=== PATIENT | male | born 1950 | race Caucasian/White ===

== ENCOUNTER 2020-02-02 00:51 | Outpatient (CLI) | payer MEDICARE, OTHER, SELFPAY ==
--- NOTE | 2020-02-02 10:30 | DI.NM_ITS ---
APPROVED REPORT Exam: Pharmacologic Patient Location: Out-Patient Room/Bed: Stress Nurse: Teresa Ledezma RN BMI: 35.29 Baseline Rhythm: Atrial Fibrillation, RBBB Indications: Chest Pain, Atrial Fibrillation, CAD Medical History Medical History: Atrial Fibrillation, CAD non obstructive, Diabetes, HTN, Obstructive sleep apnea, RB BB, Heart failure, CKD, CHF Cardiac Medications: Aspirin, Amlodipine, Atorvastatin/ Lipitor, Enalapril, Fish Oil , Metoprolol suc cinate/ Toprol XL, Torsemide/Demadex Allergies: Oxycodone, penicillin, requip, vicodin. Cardiac Risk Factors: HTN, Hyperlipidemia, DM, CVD, FHX of CAD Pretest Chest Pain Characteristics: No chest pain Exercise History: Sedentary Physical Disabilities: Knees Lung Sounds: Clear to auscultation Heart Sounds: Irregular Stress Test Details Test: Pharmacologic stress testing performed using 0.4 mg of regadenoson per 5 mL given IV over 10 s econds. Nuclear Acquisition: Rest Tc-99m/Stress Tc-99m 1 day Rest Isotope: Tc-99m Sestamibi. Dose: 12.1 Date: 02/02/2020 Injection Time: 1035 Stress Isotope: Tc-99m Sestamibi. Dose: 36 Date: 02/02/2020 Injection Time: 1235 HR Resting HR Supine: 59 bpm Max Heart Rate (APMHR): 151 bpm Target HR (85% APMHR): 128 bpm Max HR Achieved: 93 bpm % of APMHR: 61 Recovery HR: 71 bpm HR response to stress: Blunted HR response to stress BP Resting BP Supine: 136/60 mmHg Max BP: 140/64 mmHg Recovery BP: 136/64 mmHg BP response to stress: Blunted blood pressure response to stress. ECG Resting ECG: Atrial Fibrillation Ectopy: veb's Stress ECG: Atrial Fibrillation Maximum ST Deviation: 4.3 mm Arrhythmia: VPC's Recovery ECG: Atrial Fibrillation Recovery Arrhythmia: None Clinical Reason for Termination: VS returned to baseline Stress Symptoms: Chest pain Exercise duration: 9 min0 sec Exercise capacity: 1 METs Stress ECG Conclusion 1. Resting electrocardiogram showed atrial fibrillation, right bundle branch block 2. This was a pharmacologic myocardial perfusion imaging study. The patient achieved 61% of predicte d heart rate for age. Electrocardiographically the test was nondiagnostic due to inadequate heart ra te 3. Rare ventricular ectopic beats were seen MPI Conclusion No myocardial ischemia Apical thinning, possible infarction cannot be excluded EF 51% Radiologist Interpretation doubt apical thinning no ischemia Radiologist Interpretation by: Jann Montalvo MD Interpretation Date/Time: 02/09/2020 14:48:32
[2020-02-02] MEDS: Regadenoson 0.4 MG/5 ML SYR IVP (12:24)
== END 2020-02-02 01:11 ==
PROVIDERS: PCP Internal Medicine; Visit Provider Internal Medicine Interventional Cardiology
DX: R07.9 Chest pain, unspecified (principal); I48.91 Unspecified atrial fibrillation; I25.10 Atherosclerotic heart disease of native coronary artery without angina pectoris; I12.9 Hypertensive chronic kidney disease with stage 1 through stage 4 chronic kidney disease, or unspecified chronic kidney disease; E78.5 Hyperlipidemia, unspecified; Z82.49 Family history of ischemic heart disease and other diseases of the circulatory system; R94.39 Abnormal result of other cardiovascular function study
CPT/HCPCS: 78452; 93016; 93018; 93017; J2785